=== PATIENT | female | born 1940 | race Caucasian/White ===

== ENCOUNTER 2016-09-25 17:27 | Emergency (ER) | payer MEDICARE, OTHER, BC ==
[2016-09-25] MEDS ORDERED: Aspirin 81 MG Tab.Chew PO ONE (17:42)
[2016-09-25] MEDS ORDERED: Tenecteplase 50 MG Kit IV STA (17:45)
[2016-09-25] MEDS ORDERED: Heparin Sodium 10,000 Units/1 ML MDV IVPUSH ONE (17:45)
[2016-09-25] MEDS ORDERED: Heparin Sodium/D5W 25,000 UNITS/500 ML BAG IV SCH (17:48)
[2016-09-25] MEDS ORDERED: Heparin Sodium 5,000 Units/ML Vial ONE (17:53)
[2016-09-25] MEDS ORDERED: Nitroglycerin 0.4 MG Tab.SL SL ONE (18:03)
--- NOTE | 2016-09-25 18:07 | EDM.PDOC ---
ED HPI GENERAL MEDICAL PROBLEM - General Chief Complaint: Chest Pain Stated Complaint: CHEST PAIN Time Seen by Provider: 09/25/16 17:43 Source of Information: Reports: Patient History Limitations: Reports: No Limitations - History of Present Illness INITIAL COMMENTS - FREE TEXT/NARRATIVE: 75-year-old female presents for evaluation and treatment of chest pain radiating to the back. Reports the chest pain began about one hour prior to arrival in the ER around 1600 or 1630. She describes the chest pain as a dull ache starting in her chest and radiating to her back. She reports she was feeling nauseous and vomited on one occasion because of since improved. Reports minor shortness of breath. She states that the chest pain is improving and she is laying here. Patient has a past medical history of an AR about 2 years ago. She said she did have a stent placed. She is currently on Plavix 75 mg daily and 81 mg aspirin daily. Patient reports that her symptoms today feel similar to her previous AR. Initial EKG shows ST elevation in leads 2 with physical changes in aVL and V2. Location: Reports: Chest, Back Chest Pain Score (Numeric/FACES): 5 - Related Data Allergies Allergy/AdvReac Type Severity Reaction Status Date / Time acetaminophen [From Tylenol] Allergy Itching Verified 09/25/16 17:35 ibuprofen Allergy Itching Verified 09/25/16 17:35 levothyroxine sodium Allergy Itching Verified 09/25/16 17:35 Home Meds: Home Meds Aspirin [Oneal Chewable] 161 mg PO DAILY 07/29/13 [History] Cholecalciferol (Vitamin D3) [Vitamin D] 1,000 unit PO DAILY 07/29/13 [History] Clopidogrel [Plavix] 75 mg PO DAILY 07/29/13 [History] Levothyroxine Sodium [Synthroid] 125 mcg PO DAILY 07/29/13 [History] amLODIPine [Norvasc] 2.5 mg PO 07/29/13 [History] Cyclobenzaprine [Flexeril] 10 mg PO Q8H PRN #20 tab 04/19/14 [Rx] oxyCODONE 5 mg PO Q8H PRN #15 tab 04/19/14 [Rx] Past Medical History Cardiovascular History: Reports: Hypertension, AR Other Cardiovascular History: AR 2014 Genitourinary History: Reports: Chronic Renal Insuffiency Endocrine/Metabolic History: Reports: Hypothyroidism - Past Surgical History Cardiovascular Surgical History: Reports: Coronary Artery Stent GI Surgical History: Reports: Appendectomy, Colonoscopy Female Surgical History: Reports: Hysterectomy Social & Family History - Tobacco Use Smoking Status *Q: Former Smoker Years of Tobacco use: 31 Used Tobacco, but Quit: Yes Month Tobacco Last Used: 1g - Alcohol Use Days Per Week of Alcohol Use: 0 - Recreational Drug Use Recreational Drug Use: No ED ROS GENERAL - Review of Systems Review Of Systems: See Below Constitutional: Reports: Diaphoresis Respiratory: Reports: Shortness of Breath Cardiovascular: Reports: Chest Pain GI/Abdominal: Reports: Nausea, Vomiting (x1). Denies: Abdominal Pain Musculoskeletal: Reports: Arm Pain (left), Back Pain ED EXAM, GENERAL - Physical Exam Exam: See Below Exam Limited By: No Limitations General Appearance: Alert, WD/WN, No Apparent Distress Throat/Mouth: Normal Inspection, Normal Voice, No Airway Compromise Respiratory/Chest: No Respiratory Distress, Lungs Clear, Normal Breath Sounds Cardiovascular: Normal Peripheral Pulses, Regular Rate, Rhythm, No Murmur Peripheral Pulses: 2+: Radial (L), Radial (R) Neurological: Alert, Oriented, Normal Cognition Psychiatric: Normal Affect, Normal Mood Skin Exam: Warm, Dry, Normal Color Course - Vital Signs Last Recorded V/S: Last Vital Signs Temp 36.9 C 09/25/16 17:31 Pulse 60 09/25/16 17:31 Resp 18 09/25/16 17:31 BP 153/84 H 09/25/16 18:13 Pulse Ox 98 09/25/16 17:31 - Orders/Labs/Meds Orders: Active Orders 24 hr Category Date Time Status Cardiac Monitoring [RC] . DIRECTED Care 09/25/16 17:43 Active EKG 12 Lead [EKG Documentation Completion] [RC] STAT Care 09/25/16 17:35 Active EKG Documentation Completion [RC] STAT Care 09/25/16 17:43 Active Chest 1V Frontal [CR] Stat Exams 09/25/16 17:43 Taken CMP [COMPREHENSIVE METABOLIC PN,CMP] [CHEM] Stat Lab 09/25/16 17:58 Ordered TROPONIN I [CHEM] Stat Lab 09/25/16 17:44 Received Heparin Sodium/D5W [Heparin 25,000 Units in D5W 500 ML] Med 09/25/16 17:48 Active 25,000 units in 500 ml IV TITRATE Nitroglycerin/D5W [Nitroglycerin 25 MG/D5W 250 ML] Med 09/25/16 18:45 Ordered 25 mg in 250 ml IV TITRATE Medication Orders Heparin Sodium/Dextrose (Heparin 25,000 Units In D5w 500 Ml) 25,000 units in 500 mls @ 18.833 mls/hr IV TITRATE DANYELL; 12 UNITS/KG/HR PRN Reason: Protocol Last Admin: 09/25/16 18:04 Dose: 18.833 mls/hr Labs: Laboratory Tests 09/25/16 09/25/16 Range/Units 17:44 17:44 WBC 14.47 H (3.98-10.04) K/mm3 RBC 3.90 L (3.98-5.22) M/mm3 Hgb 11.9 (11.2-15.7) gm/L Hct 36.9 (34.1-44.9) % MCV 94.6 (79.4-94.8) fl MCH 30.5 (25.6-32.2) pg MCHC 32.2 (32.2-35.5) g/dl RDW Std Deviation 46.4 H (36.4-46.3) fL Plt Count 224 (182-369) K/mm3 MPV 12.0 (9.4-12.3) fl Neut % (Auto) 62.3 (34.0-71.1) % Lymph % (Auto) 23.8 (19.3-51.7) % Elk % (Auto) 11.8 (4.7-12.5) % Eos % (Auto) 1.6 (0.7-5.8) Baso % (Auto) 0.2 (0.1-1.2) % Neut # (Auto) 9.01 H (1.56-6.13) K/mm3 Lymph # (Auto) 3.44 (1.18-3.74) K/mm3 Elk # (Auto) 1.71 H (0.24-0.36) K/mm3 Eos # (Auto) 0.23 (0.04-0.36) K/mm3 Baso # (Auto) 0.03 (0.01-0.08) K/mm3 Manual Slide Review Normal smear PT 10.0 (8.0-13.0) SECONDS INR 0.92 APTT 24 (22-36) SECONDS Meds: Medications Generic Name Dose Route Start Last Admin Trade Name Freq PRN Reason Stop Dose Admin Heparin Sodium/Dextrose 25,000 units in 500 mls @ 18.833 mls/hr 09/25/16 17: 48 09/25/16 18:04 Heparin 25,000 Units In D5w 500 Ml IV 18.833 mls/hr TITRATE DANYELL Administration Protocol 12 UNITS/KG/HR Discontinued Medications Generic Name Dose Route Start Last Admin Trade Name Freq PRN Reason Stop Dose Admin Aspirin 324 mg 09/25/16 17:42 09/25/16 17:49 Aspirin PO 09/25/16 17:43 324 mg ONETIME ONE Administration Heparin Sodium (Porcine) 4,000 units 09/25/16 17:45 09/25/16 17:57 Heparin Sodium IVPUSH 09/25/16 17:46 4,000 units .BOLUS ONE Administration Heparin Sodium (Porcine) Confirm 09/25/16 17:53 09/25/16 17:59 Heparin Sodium Administered 09/25/16 17:54 Not Given Dose 5,000 units .ROUTE .STK-MED ONE Nitroglycerin 0.4 mg 09/25/16 18:03 09/25/16 18:13 Nitrostat SL 09/25/16 18:04 0.4 mg ONETIME ONE Administration Tenecteplase 40 mg 09/25/16 17:45 09/25/16 17:57 Tnkase IV 09/25/16 17:46 40 mg NOW STA Administration Protocol - Radiology Interpretation Free Text/Narrative:: chest xray shows no acute changes. - Re-Assessments/Exams Free Text/Narrative Re-Assessment/Exam: 09/25/16 18:06 I reviewed the exclusion criteria with the patient's forgiving fibrinolytics. She has none. We'll give 40 mg TNkase at this time with a heparin bolus and drip. Plan will be to send by ground, due to weather, to [facility] in [place]. Discussed the case with Dr. gardner. We'll give heparin bolus, heparin drip drip per STEMI protocol. We'll give TNKase she does not have any contraindications. 09/25/16 18:[address] 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 advised against giving Plavix as she is on Plavix. I spoke with Dr. Davison physician. accepts the patient transfer. We will send by ground ambulance [facility] for a STEMI. 09/25/16 18:29 Patient agrees to going to [place] for possible stent placement. She is a full code. 09/25/16 18:31 Patient's heart rate has been in the low 60s and 50s. I feel this is a little too low to give Lopressor. Her systolic blood pressure has been in the 130s to 150s. She continues to report minimal discomfort I will start an IV nitro drip to help with her blood pressure and discomfort. Departure - Departure Time of Disposition: 18:28 Disposition: DC/Tfer to Acute Hospital 02 Reason for Transfer *Q: Primary PCI Indicated Condition: serious Clinical Impression: STEMI (ST elevation myocardial infarction) Referrals: Vicky Horvath MD [Primary Care Provider] - Forms: ED Department Discharge Additional Instructions: Patient to go by ground ambulance to [facility] in [place]. - My Orders Last 24 Hours: My Active Orders 09/25/16 17:35 EKG 12 Lead [EKG Documentation Completion] [RC] STAT 09/25/16 17:43 Cardiac Monitoring [RC] . DIRECTED EKG Documentation Completion [RC] STAT Chest 1V Frontal [CR] Stat 09/25/16 17:44 TROPONIN I [CHEM] Stat 09/25/16 17:48 Heparin Sodium/D5W [Heparin 25,000 Units in D5W 500 ML] 25,000 units in 500 ml IV TITRATE 09/25/16 17:58 CMP [COMPREHENSIVE METABOLIC PN,CMP] [CHEM] Stat 09/25/16 18:45 Nitroglycerin/D5W [Nitroglycerin 25 MG/D5W 250 ML] 25 mg in 250 ml IV TITRATE - Assessment/Plan Last 24 Hours: My Active Orders 09/25/16 17:35 EKG 12 Lead [EKG Documentation Completion] [RC] STAT 09/25/16 17:43 Cardiac Monitoring [RC] . DIRECTED EKG Documentation Completion [RC] STAT Chest 1V Frontal [CR] Stat 09/25/16 17:44 TROPONIN I [CHEM] Stat 09/25/16 17:48 Heparin Sodium/D5W [Heparin 25,000 Units in D5W 500 ML] 25,000 units in 500 ml IV TITRATE 09/25/16 17:58 CMP [COMPREHENSIVE METABOLIC PN,CMP] [CHEM] Stat 09/25/16 18:45 Nitroglycerin/D5W [Nitroglycerin 25 MG/D5W 250 ML] 25 mg in 250 ml IV TITRATE
[2016-09-25 18:16] VITALS: BP 153/84
[2016-09-25] MEDS ORDERED: Nitroglycerin/D5W 25 MG/250 ML BOTTLE IV SCH (18:45)
--- NOTE | 2016-09-26 10:48 | CR ---
Chest: Portable view of the chest was obtained. Comparison: Previous chest x-ray of 10/27/12. Heart is enlarged. Tortuous thoracic aorta is seen. Lungs are clear with no acute infiltrates. Scoliosis is present within the spine. Impression: 1. Findings as described above. Nothing acute is identified on portable chest x-ray. Diagnostic code #2
== END 2016-09-25 18:44 ==
LOC: SUPCPDRO 17:27 → JD.ED 17:27
DX: I21.3 ST elevation (STEMI) myocardial infarction of unspecified site (principal); I25.2 Old myocardial infarction; I12.9 Hypertensive chronic kidney disease with stage 1 through stage 4 chronic kidney disease, or unspecified chronic kidney disease; E03.9 Hypothyroidism, unspecified; N18.9 Chronic kidney disease, unspecified; Z95.5 Presence of coronary angioplasty implant and graft; Z90.49 Acquired absence of other specified parts of digestive tract; Z90.710 Acquired absence of both cervix and uterus; Z79.82 Long term (current) use of aspirin; Z79.02 Long term (current) use of antithrombotics/antiplatelets; Z79.899 Other long term (current) drug therapy; Z87.891 Personal history of nicotine dependence; Z88.1 Allergy status to other antibiotic agents; Z88.8 Allergy status to other drugs, medicaments and biological substances
CPT/HCPCS: 36415; 71010; 80053; 84484; 85025; 85610; 85730; 93005; 96365; 96375; 96376; 99285; A9270; J1644; J3101; 99284

== ENCOUNTER 2022-12-14 12:35 | Emergency (ER) | payer MEDICARE, OTHER ==
[2022-12-14] MEDS ORDERED: Sodium Chloride 0.9% 10 ML Syringe FLUSH PRN (13:02)
[2022-12-14] MEDS ORDERED: Sodium Chloride 0.9% 1,000 ML IV SCH (13:15)
[2022-12-14 13:32] LABS: BASOPHILS ABSOLUTE AUTO 0.1 K/mm3 (0.0-0.2); BASOPHILS PERCENT AUTO 0.9 % (0.0-1.0); EOSINOPHILS ABSOLUTE AUTO 0.6 K/mm3 (0.0-0.4); EOSINOPHILS PERCENT AUTO 7.1 % (0.0-6.0); HEMATOCRIT 39.6 % (37.0-47.0); HEMOGLOBIN 13.1 gm/dl (12.0-16.0); IMMATURE GRAN ABSOLUTE AUTO 0.04 K/mm3 (0.00-0.05); IMMATURE GRAN PERCENT AUTO 0.5 % (0.0-0.4); LYMPHOCYTES ABSOLUTE AUTO 2.7 K/mm3 (1.0-4.8); LYMPHOCYTES PERCENT AUTO 32.7 % (24.0-44.0); MEAN CORPUSCULAR HGB CONC 33.1 g/dl (32.0-36.0); MEAN CORPUSCULAR VOLUME 93.8 fl (83.0-99.0); MONOCYTES ABSOLUTE AUTO 0.7 K/mm3 (0.0-0.8); MONOCYTES PERCENT AUTO 8.3 % (0.0-8.0); NEUTROPHILS ABSOLUTE AUTO 4.1 K/mm3 (1.8-7.7); NEUTROPHILS PERCENT AUTO 50.5 % (41.0-71.0); PLATELET COUNT,PLT 147 K/mm3 (150-400); RED BLOOD CELL COUNT 4.22 M/mm3 (4.10-5.30); WHITE BLOOD CELL COUNT,WBC 8.17 K/mm3 (3.9-11.3)
[2022-12-14 13:57] LABS: SLIDE REVIEW NORMAL SMEAR
[2022-12-14 14:01] LABS: A/G RATIO 0.9 (1-2); ALBUMIN 3.2 g/dl (3.4-5.0); ANION GAP 13.5 (5-15); BILIRUBIN TOTAL 0.4 mg/dL (0.2-1.0); CALCIUM 8.9 mg/dL (8.5-10.1); CREATININE 1.5 mg/dL (0.55-1.02); EST CRCL DRUG DOSING (CG) 21.44 mL/min; MAGNESIUM 1.7 mg/dL (1.8-2.4); POTASSIUM,K 3.5 mEq/L (3.5-5.1); PROTEIN TOTAL,TP 6.8 g/dl (6.4-8.2)
[2022-12-14 15:35] LABS: APPEARANCE,URINE CLEAR (Clear); BILIRUBIN,URINE NEGATIVE (Negative); COLOR,URINE YELLOW (Yellow); GLUCOSE,URINE NEGATIVE (Negative); KETONES,URINE NEGATIVE (Negative); LEUKOCYTE ESTERASE,URINE 1+ (Negative); NITRITE,URINE POSITIVE (Negative); OCCULT BLOOD,URINE NEGATIVE (Negative); PROTEIN,URINE TRACE (Negative); UROBILINOGEN,URINE 0.2 (0.2-1.0)
[2022-12-14 15:46] LABS: BACTERIA,URINE MANY /hpf (FEW); MUCUS,URINE FEW /hpf (FEW); RBC,URINE 0-5 /hpf (0-5); SQUAMOUS EPITHELIAL CELLS,UR 0-5 /hpf (0-5)
[2022-12-14] MEDS ORDERED: cefTRIAXone 1 GM in Sodium Chloride 0.9% 100 ML IV ONE (15:54)
[2022-12-14 17:50] VITALS: BP 171/65; PULSE 47
== END 2022-12-14 17:05 | disposition home or self-care (01) ==
LOC: JD.ED 12:35
DX: N30.00 Acute cystitis without hematuria (principal); I10 Essential (primary) hypertension; I25.2 Old myocardial infarction; M19.90 Unspecified osteoarthritis, unspecified site; E03.9 Hypothyroidism, unspecified; Z88.6 Allergy status to analgesic agent; Z88.8 Allergy status to other drugs, medicaments and biological substances; Z79.82 Long term (current) use of aspirin; Z79.899 Other long term (current) drug therapy
CPT/HCPCS: 36415; 70450; 80053; 81001; 83735; 84484; 85025; 93005; 96361; 96365; 99285; J0696; J3490; J7030; 93010; 99283

== ENCOUNTER 2023-03-14 18:37 | Emergency (ER) | payer MEDICARE ==
[2023-03-14] MEDS ORDERED: Lidocaine/Epineph/Tetracaine 3 ML Syringe TOP ONE (19:52)
[2023-03-14 22:49] VITALS: BP 179/98; PULSE 98
[2023-03-15 05:28] LABS: APPEARANCE,URINE CLEAR (Clear); BILIRUBIN,URINE NEGATIVE (Negative); COLOR,URINE LIGHT YELLOW (Yellow); GLUCOSE,URINE NEGATIVE (Negative); KETONES,URINE NEGATIVE (Negative); LEUKOCYTE ESTERASE,URINE 2+ (Negative); NITRITE,URINE NEGATIVE (Negative); OCCULT BLOOD,URINE TRACE-INTACT (Negative); PROTEIN,URINE 2+ (Negative); UROBILINOGEN,URINE 0.2 (0.2-1.0)
[2023-03-15 05:40] LABS: RBC,URINE 0-5 /hpf (0-5)
[2023-03-15 05:41] LABS: BACTERIA,URINE MANY /hpf (FEW); EPITHELIAL CELLS,URINE 0-5 /hpf (0-5); MUCUS,URINE NOT SEEN /hpf (FEW)
== END 2023-03-14 21:51 | disposition home or self-care (01) ==
LOC: JD.ED 18:37
DX: S01.01XA Laceration without foreign body of scalp, initial encounter (principal); I12.9 Hypertensive chronic kidney disease with stage 1 through stage 4 chronic kidney disease, or unspecified chronic kidney disease; N18.9 Chronic kidney disease, unspecified; I25.2 Old myocardial infarction; E03.9 Hypothyroidism, unspecified; Z90.710 Acquired absence of both cervix and uterus; Z79.02 Long term (current) use of antithrombotics/antiplatelets; Z79.82 Long term (current) use of aspirin; Z79.899 Other long term (current) drug therapy; Z88.6 Allergy status to analgesic agent; Z88.8 Allergy status to other drugs, medicaments and biological substances
CPT/HCPCS: 12001; 81001; 87086; 87088; 87186; 99283; A9270-GY

== ENCOUNTER 2023-08-16 05:56 | Inpatient (IN) | payer MEDICARE ==
[2023-08-16 06:51] LABS: BASOPHILS ABSOLUTE AUTO 0.1 K/mm3 (0.0-0.2); BASOPHILS PERCENT AUTO 0.4 % (0.0-1.0); EOSINOPHILS ABSOLUTE AUTO 0.1 K/mm3 (0.0-0.4); EOSINOPHILS PERCENT AUTO 0.8 % (0.0-6.0); HEMATOCRIT 36.1 % (37.0-47.0); IMMATURE GRAN ABSOLUTE AUTO 0.09 K/mm3 (0.00-0.05); IMMATURE GRAN PERCENT AUTO 0.5 % (0.0-0.4); LYMPHOCYTES ABSOLUTE AUTO 3.5 K/mm3 (1.0-4.8); LYMPHOCYTES PERCENT AUTO 19.3 % (24.0-44.0); MEAN CORPUSCULAR HEMOGLOBIN 31.1 pg (28.0-32.0); MEAN CORPUSCULAR HGB CONC 33.2 g/dl (32.0-36.0); MEAN CORPUSCULAR VOLUME 93.5 fl (83.0-99.0); MEAN PLATELET VOLUME 13.1 fl (9.4-12.3); MONOCYTES ABSOLUTE AUTO 1.6 K/mm3 (0.0-0.8); NEUTROPHILS ABSOLUTE AUTO 12.6 K/mm3 (1.8-7.7); PLATELET COUNT,PLT 161 K/mm3 (150-400); RED BLOOD CELL COUNT 3.86 M/mm3 (4.10-5.30); WHITE BLOOD CELL COUNT,WBC 17.95 K/mm3 (3.9-11.3)
[2023-08-16] MEDS: Sodium Chloride 0.9% 10 ML Syringe FLUSH PRN (07:04)
[2023-08-16 07:12] LABS: A/G RATIO 0.9 (1-2); ALBUMIN 3.1 g/dl (3.4-5.0); ANION GAP 16.7 (5-15); BILIRUBIN TOTAL 0.9 mg/dL (0.2-1.0); BUN/CREATININE RATIO 15.7 (14-18); CALCIUM 8.8 mg/dL (8.5-10.1); CREATININE 1.4 mg/dL (0.55-1.02); EST CRCL DRUG DOSING (CG) 21.49 mL/min; POTASSIUM,K 3.7 mEq/L (3.5-5.1); PROTEIN TOTAL,TP 6.7 g/dl (6.4-8.2)
[2023-08-16] MEDS: Iopamidol 612 MG/ML 100 ML Bottle IVPUSH ONE (07:48)
[2023-08-16 07:50] LABS: SLIDE REVIEW ABNORMAL SMEAR
[2023-08-16] MEDS: Sodium Chloride 0.9% 500 ML IV ONE ×2 (08:01→09:12)
[2023-08-16] MEDS: metroNIDAZOLE/Normal Saline 500 MG in Premix Bag 1 BAG IV ONE (09:11)
[2023-08-16] MEDS: cefTRIAXone 1 GM in Sodium Chloride 0.9% 100 ML IV ONE (09:12)
[2023-08-16 09:32] LABS: APPEARANCE,URINE CLEAR (Clear); BILIRUBIN,URINE NEGATIVE (Negative); COLOR,URINE YELLOW (Yellow); GLUCOSE,URINE 2+ (Negative); KETONES,URINE NEGATIVE (Negative); LEUKOCYTE ESTERASE,URINE TRACE (Negative); NITRITE,URINE POSITIVE (Negative); OCCULT BLOOD,URINE TRACE-INTACT (Negative); PROTEIN,URINE 1+ (Negative)
[2023-08-16 09:41] LABS: BACTERIA,URINE MODERATE /hpf (FEW); MUCUS,URINE RARE /hpf (FEW); RBC,URINE 0-5 /hpf (0-5); SQUAMOUS EPITHELIAL CELLS,UR 0-5 /hpf (0-5)
[2023-08-16] MEDS ORDERED: Acetaminophen 325 MG Tab PO PRN (14:12)
[2023-08-16] MEDS: Sodium Chloride 0.9% 1,000 ML IV SCH (15:51)
[2023-08-16] MEDS: Heparin Sodium 5,000 Units/ML Vial SUBCUT SCH (15:51)
[2023-08-16] MEDS: Sodium Chloride 0.9% 10 ML Syringe IARTIC ONE (19:07)
[2023-08-17 05:01] LABS: BASOPHILS ABSOLUTE AUTO 0.1 K/mm3 (0.0-0.2); BASOPHILS PERCENT AUTO 0.4 % (0.0-1.0); EOSINOPHILS ABSOLUTE AUTO 0.3 K/mm3 (0.0-0.4); EOSINOPHILS PERCENT AUTO 1.8 % (0.0-6.0); HEMATOCRIT 32.6 % (37.0-47.0); HEMOGLOBIN 10.8 gm/dl (12.0-16.0); IMMATURE GRAN ABSOLUTE AUTO 0.07 K/mm3 (0.00-0.05); IMMATURE GRAN PERCENT AUTO 0.5 % (0.0-0.4); LYMPHOCYTES ABSOLUTE AUTO 3.3 K/mm3 (1.0-4.8); LYMPHOCYTES PERCENT AUTO 23.2 % (24.0-44.0); MEAN CORPUSCULAR HEMOGLOBIN 30.7 pg (28.0-32.0); MEAN CORPUSCULAR HGB CONC 33.1 g/dl (32.0-36.0); MEAN CORPUSCULAR VOLUME 92.6 fl (83.0-99.0); MEAN PLATELET VOLUME 13.9 fl (9.4-12.3); MONOCYTES ABSOLUTE AUTO 1.1 K/mm3 (0.0-0.8); MONOCYTES PERCENT AUTO 7.7 % (0.0-8.0); NEUTROPHILS ABSOLUTE AUTO 9.4 K/mm3 (1.8-7.7); NEUTROPHILS PERCENT AUTO 66.4 % (41.0-71.0); PLATELET COUNT,PLT 136 K/mm3 (150-400); RED BLOOD CELL COUNT 3.52 M/mm3 (4.10-5.30); WHITE BLOOD CELL COUNT,WBC 14.19 K/mm3 (3.9-11.3)
[2023-08-17 05:32] LABS: A/G RATIO 0.9 (1-2); ALBUMIN 2.7 g/dl (3.4-5.0); ANION GAP 16.2 (5-15); BILIRUBIN TOTAL 0.4 mg/dL (0.2-1.0); BUN/CREATININE RATIO 14.5 (14-18); CALCIUM 8.2 mg/dL (8.5-10.1); CREATININE 1.1 mg/dL (0.55-1.02); EST CRCL DRUG DOSING (CG) 27.35 mL/min; MAGNESIUM 1.8 mg/dL (1.8-2.4); POTASSIUM,K 3.2 mEq/L (3.5-5.1); PROTEIN TOTAL,TP 5.6 g/dl (6.4-8.2)
[2023-08-17] MEDS: Magnesium Citrate Solution 296 ML Bottle PO ONE (08:38)
[2023-08-17] MEDS: cefTRIAXone 1 GM in Sodium Chloride 0.9% 100 ML IV SCH (08:38)
[2023-08-17] MEDS: Potassium Bicarbonate/Cit Ac 20 MEQ Effervescent Tab PO ONE (11:32)
[2023-08-19] MEDS: Docusate Sodium 100 MG Cap PO PRN (00:16)
[2023-08-19 05:41] LABS: BASOPHILS ABSOLUTE AUTO 0.1 K/mm3 (0.0-0.2); BASOPHILS PERCENT AUTO 0.7 % (0.0-1.0); EOSINOPHILS ABSOLUTE AUTO 0.4 K/mm3 (0.0-0.4); HEMOGLOBIN 10.1 gm/dl (12.0-16.0); IMMATURE GRAN ABSOLUTE AUTO 0.03 K/mm3 (0.00-0.05); IMMATURE GRAN PERCENT AUTO 0.4 % (0.0-0.4); LYMPHOCYTES ABSOLUTE AUTO 2.7 K/mm3 (1.0-4.8); MEAN CORPUSCULAR HEMOGLOBIN 30.4 pg (28.0-32.0); MEAN CORPUSCULAR HGB CONC 32.6 g/dl (32.0-36.0); MEAN CORPUSCULAR VOLUME 93.4 fl (83.0-99.0); MEAN PLATELET VOLUME 14.4 fl (9.4-12.3); MONOCYTES ABSOLUTE AUTO 0.8 K/mm3 (0.0-0.8); MONOCYTES PERCENT AUTO 9.3 % (0.0-8.0); NEUTROPHILS ABSOLUTE AUTO 4.1 K/mm3 (1.8-7.7); NEUTROPHILS PERCENT AUTO 50.6 % (41.0-71.0); PLATELET COUNT,PLT 105 K/mm3 (150-400); RED BLOOD CELL COUNT 3.32 M/mm3 (4.10-5.30); WHITE BLOOD CELL COUNT,WBC 8.07 K/mm3 (3.9-11.3)
[2023-08-19 06:03] LABS: ANION GAP 13.8 (5-15); BUN/CREATININE RATIO 11.8 (14-18); CALCIUM 8.1 mg/dL (8.5-10.1); CREATININE 1.1 mg/dL (0.55-1.02); EST CRCL DRUG DOSING (CG) 27.35 mL/min
[2023-08-19 06:16] LABS: POTASSIUM,K 4.8 mEq/L (3.5-5.1)
[2023-08-19 06:23] LABS: SLIDE REVIEW ABNORMAL SMEAR
[2023-08-19] MEDS: Calcitriol 0.25 MCG Cap PO SCH (08:40)
[2023-08-19] MEDS: Metoprolol Tartrate 25 MG Tab PO SCH (08:40)
[2023-08-19] MEDS: Rosuvastatin 10 MG Tab PO SCH (08:40)
[2023-08-19] MEDS: Oxybutynin 5 MG Tab.ER PO SCH (08:40)
[2023-08-19] MEDS: amLODIPine 10 MG Tab PO SCH (08:41)
[2023-08-19] MEDS: Sodium Bicarbonate 650 MG Tab PO SCH (08:41)
[2023-08-19] MEDS: Levothyroxine 75 MCG Tab PO SCH ×2 (10:26→20:39)
[2023-08-19] MEDS: Levothyroxine 100 MCG Tab PO SCH (10:26)
[2023-08-19] MEDS: Donepezil 10 MG Tab PO SCH (21:10)
[2023-08-20 05:55] LABS: BASOPHILS ABSOLUTE AUTO 0.1 K/mm3 (0.0-0.2); BASOPHILS PERCENT AUTO 0.8 % (0.0-1.0); EOSINOPHILS ABSOLUTE AUTO 0.5 K/mm3 (0.0-0.4); EOSINOPHILS PERCENT AUTO 6.2 % (0.0-6.0); HEMATOCRIT 30.9 % (37.0-47.0); HEMOGLOBIN 10.1 gm/dl (12.0-16.0); IMMATURE GRAN ABSOLUTE AUTO 0.03 K/mm3 (0.00-0.05); IMMATURE GRAN PERCENT AUTO 0.4 % (0.0-0.4); LYMPHOCYTES ABSOLUTE AUTO 2.8 K/mm3 (1.0-4.8); LYMPHOCYTES PERCENT AUTO 38.1 % (24.0-44.0); MEAN CORPUSCULAR HEMOGLOBIN 31.1 pg (28.0-32.0); MEAN CORPUSCULAR HGB CONC 32.7 g/dl (32.0-36.0); MEAN CORPUSCULAR VOLUME 95.1 fl (83.0-99.0); MEAN PLATELET VOLUME 14.5 fl (9.4-12.3); MONOCYTES ABSOLUTE AUTO 0.7 K/mm3 (0.0-0.8); MONOCYTES PERCENT AUTO 9.9 % (0.0-8.0); NEUTROPHILS ABSOLUTE AUTO 3.3 K/mm3 (1.8-7.7); NEUTROPHILS PERCENT AUTO 44.6 % (41.0-71.0); PLATELET COUNT,PLT 151 K/mm3 (150-400); RED BLOOD CELL COUNT 3.25 M/mm3 (4.10-5.30)
[2023-08-20 06:06] LABS: CALCIUM 8.3 mg/dL (8.5-10.1); CREATININE 1.2 mg/dL (0.55-1.02); EST CRCL DRUG DOSING (CG) 25.07 mL/min
[2023-08-20] MEDS: Polyethylene Glycol 3350 Powder 17 GM Packet PO SCH (08:04)
[2023-08-20 13:39] VITALS: BP 126/57; PULSE 52
== END 2023-08-20 16:55 | disposition home or self-care (01) | DRG 392 ==
LOC: JD.ED 05:56 → JD.MS 14:27
PROVIDERS: ADMIT Internal Medicine; ATTEND Internal Medicine
DX: K52.89 Other specified noninfective gastroenteritis and colitis (principal); N30.00 Acute cystitis without hematuria; I10 Essential (primary) hypertension; H54.7 Unspecified visual loss; I12.9 Hypertensive chronic kidney disease with stage 1 through stage 4 chronic kidney disease, or unspecified chronic kidney disease; Z90.49 Acquired absence of other specified parts of digestive tract; M19.90 Unspecified osteoarthritis, unspecified site; M54.9 Dorsalgia, unspecified; Z88.6 Allergy status to analgesic agent; G89.29 Other chronic pain; E03.9 Hypothyroidism, unspecified; F03.90 Unspecified dementia, unspecified severity, without behavioral disturbance, psychotic disturbance, mood disturbance, and anxiety; N18.32 Chronic kidney disease, stage 3b; Z79.899 Other long term (current) drug therapy; Z88.8 Allergy status to other drugs, medicaments and biological substances; I25.2 Old myocardial infarction; Z90.89 Acquired absence of other organs; Z98.49 Cataract extraction status, unspecified eye; Z98.890 Other specified postprocedural states; Z90.710 Acquired absence of both cervix and uterus; Z95.5 Presence of coronary angioplasty implant and graft; Z87.891 Personal history of nicotine dependence
CPT/HCPCS: 36415; 74177; 80053; 81001; 81003; 83605; 85025; 87086; 87088; 87186; J0696; J1836; J3490 ×3; J7030 ×2; Q9967; 74019; 74019-26; 80048; 83735; 94761; 97110-GP; 97161-GP; A9270-GY; J1644

== ENCOUNTER 2024-05-28 14:39 | Emergency (ER) | payer MEDICAID, MEDICARE ==
[2024-05-28 14:46] VITALS: BP 145/42; PULSE 46
[2024-05-28] MEDS ORDERED: Sodium Chloride 0.9% 10 ML Syringe FLUSH PRN (14:53)
[2024-05-28 15:46] LABS: BASOPHILS ABSOLUTE AUTO 0.1 K/mm3 (0.0-0.2); BASOPHILS PERCENT AUTO 0.6 % (0.0-1.0); EOSINOPHILS ABSOLUTE AUTO 0.7 K/mm3 (0.0-0.4); EOSINOPHILS PERCENT AUTO 7.1 % (0.0-6.0); HEMATOCRIT 28.9 % (37.0-47.0); HEMOGLOBIN 8.9 gm/dl (12.0-16.0); IMMATURE GRAN ABSOLUTE AUTO 0.02 K/mm3 (0.00-0.05); IMMATURE GRAN PERCENT AUTO 0.2 % (0.0-0.4); LYMPHOCYTES ABSOLUTE AUTO 3.2 K/mm3 (1.0-4.8); LYMPHOCYTES PERCENT AUTO 33.4 % (24.0-44.0); MEAN CORPUSCULAR HEMOGLOBIN 30.8 pg (28.0-32.0); MEAN CORPUSCULAR HGB CONC 30.8 g/dl (32.0-36.0); MEAN PLATELET VOLUME 13.8 fl (9.4-12.3); MONOCYTES ABSOLUTE AUTO 1.2 K/mm3 (0.0-0.8); MONOCYTES PERCENT AUTO 12.8 % (0.0-8.0); NEUTROPHILS ABSOLUTE AUTO 4.4 K/mm3 (1.8-7.7); NEUTROPHILS PERCENT AUTO 45.9 % (41.0-71.0); PLATELET COUNT,PLT 141 K/mm3 (150-400); RED BLOOD CELL COUNT 2.89 M/mm3 (4.10-5.30)
[2024-05-28 16:14] LABS: INR 0.98; PROTHROMBIN TIME 10.4 SECONDS (9.7-12.0)
[2024-05-28 16:15] LABS: PTT,PARTIAL THROMBOPLSTIN TIME 23.1 SECONDS (21.7-31.4)
[2024-05-28 16:30] LABS: BILIRUBIN TOTAL 0.4 mg/dL (0.2-1.0); BUN/CREATININE RATIO 12.3 (14-18); CALCIUM 12.1 mg/dL (8.5-10.1); CREATININE 2.6 mg/dL (0.55-1.02); EST CRCL DRUG DOSING (CG) 11.36 mL/min; MAGNESIUM 2.2 mg/dL (1.8-2.4); PROTEIN TOTAL,TP 6.1 g/dl (6.4-8.2)
== END 2024-05-28 17:15 ==
LOC: JD.ED 14:39
DX: I45.9 Conduction disorder, unspecified (principal); N17.9 Acute kidney failure, unspecified; D64.9 Anemia, unspecified; R00.1 Bradycardia, unspecified; E83.52 Hypercalcemia; R79.89 Other specified abnormal findings of blood chemistry; Z87.81 Personal history of (healed) traumatic fracture; I12.9 Hypertensive chronic kidney disease with stage 1 through stage 4 chronic kidney disease, or unspecified chronic kidney disease; N18.9 Chronic kidney disease, unspecified; I25.2 Old myocardial infarction; E03.9 Hypothyroidism, unspecified; Z88.8 Allergy status to other drugs, medicaments and biological substances; Z79.890 Hormone replacement therapy; Z79.899 Other long term (current) drug therapy; Z90.49 Acquired absence of other specified parts of digestive tract; Z90.710 Acquired absence of both cervix and uterus; W19.XXXA Unspecified fall, initial encounter; X50.1XXA Overexertion from prolonged static or awkward postures, initial encounter; Y93.01 Activity, walking, marching and hiking
CPT/HCPCS: 36415; 71045; 71045-26; 80053; 83735; 83880; 84484; 85025; 85610; 85730; 93005; 99285

== ENCOUNTER 2024-07-21 21:13 | Emergency (ER) | payer MEDICARE, MEDICAID ==
[2024-07-21 22:23] LABS: BASOPHILS ABSOLUTE AUTO 0.1 K/mm3 (0.0-0.2); BASOPHILS PERCENT AUTO 0.7 % (0.0-1.0); EOSINOPHILS ABSOLUTE AUTO 1.7 K/mm3 (0.0-0.4); EOSINOPHILS PERCENT AUTO 12.7 % (0.0-6.0); HEMATOCRIT 31.3 % (37.0-47.0); HEMOGLOBIN 9.7 gm/dl (12.0-16.0); IMMATURE GRAN ABSOLUTE AUTO 0.04 K/mm3 (0.00-0.05); IMMATURE GRAN PERCENT AUTO 0.3 % (0.0-0.4); LYMPHOCYTES ABSOLUTE AUTO 3.6 K/mm3 (1.0-4.8); LYMPHOCYTES PERCENT AUTO 27.4 % (24.0-44.0); MEAN CORPUSCULAR HEMOGLOBIN 32.1 pg (28.0-32.0); MEAN CORPUSCULAR VOLUME 103.6 fl (83.0-99.0); MEAN PLATELET VOLUME 12.5 fl (9.4-12.3); MONOCYTES PERCENT AUTO 7.3 % (0.0-8.0); NEUTROPHILS ABSOLUTE AUTO 6.9 K/mm3 (1.8-7.7); NEUTROPHILS PERCENT AUTO 51.6 % (41.0-71.0); PLATELET COUNT,PLT 204 K/mm3 (150-400); RED BLOOD CELL COUNT 3.02 M/mm3 (4.10-5.30); WHITE BLOOD CELL COUNT,WBC 13.29 K/mm3 (3.9-11.3)
[2024-07-21 22:45] LABS: A/G RATIO 0.9 (1-2); ALANINE AMINOTRANSFERASE,ALT 13 U/L (14-59); ALBUMIN 3.2 g/dl (3.4-5.0); ALKALINE PHOSPHATASE 62 U/L (46-116); ANION GAP 12.5 (5-15); ASPARTATE AMNIOTRANSFERASE,AST 16 U/L (15-37); BILIRUBIN TOTAL 0.3 mg/dL (0.2-1.0); BLOOD UREA NITROGEN,BUN 35 mg/dL (7-18); BUN/CREATININE RATIO 17.5 (14-18); CALCIUM 9.4 mg/dL (8.5-10.1); CARBON DIOXIDE,CO2 25 mEq/L (21-32); CHLORIDE,CL 108 mEq/L (98-107); ESTIMATED GFR 24 mL/min (>60); GLUCOSE RANDOM 147 mg/dL (70-99); LIPASE 42 U/L (16-77); POTASSIUM,K 4.5 mEq/L (3.5-5.1); PROTEIN TOTAL,TP 6.6 g/dl (6.4-8.2); SODIUM,NA 141 mEq/L (136-145)
[2024-07-22 00:14] VITALS: BP 135/114; PULSE 73
== END 2024-07-22 00:14 | disposition home or self-care (01) ==
LOC: JD.ED 21:13
DX: K59.00 Constipation, unspecified (principal); I10 Essential (primary) hypertension; E03.9 Hypothyroidism, unspecified; Z88.8 Allergy status to other drugs, medicaments and biological substances; Z79.899 Other long term (current) drug therapy; Z90.49 Acquired absence of other specified parts of digestive tract; Z90.710 Acquired absence of both cervix and uterus
CPT/HCPCS: 36415; 74176; 74176-26; 80053; 83690; 85025; 99284